=== PATIENT | male | born 1970 | race Hispanic/Latino ===

== ENCOUNTER 2017-09-16 09:42 | Outpatient (RCR) | payer BC | END 2017-09-25 | LOC: OT 09:42 | PROVIDERS: ATTEND Surgery Surgery of the Hand | DX: S62.624D Displaced fracture of middle phalanx of right ring finger, subsequent encounter for fracture with routine healing (principal); M79.641 Pain in right hand; M25.641 Stiffness of right hand, not elsewhere classified; M25.631 Stiffness of right wrist, not elsewhere classified | CPT/HCPCS: 97110; 97165; L3808 ==

== ENCOUNTER 2017-10-16 14:30 | Outpatient (RCR) | payer BC | END 2017-10-26 | LOC: PT 14:30 | PROVIDERS: ATTEND Surgery Surgery of the Hand | DX: S62.624D Displaced fracture of middle phalanx of right ring finger, subsequent encounter for fracture with routine healing (principal) | CPT/HCPCS: 97139 ==